=== PATIENT | male | born 1970 | race Caucasian/White ===

== ENCOUNTER → 2019-07-24 | Outpatient (CLI) | payer OTHER ==
--- NOTE | 2019-07-25 14:43 | REP ---
BILATERAL KNEE MRI STUDY WITHOUT CONTRAST: HISTORY: Bilateral knee pain and locking. TECHNIQUE: Axial, coronal, and sagittal imaging planes are utilized for T1, proton density, and T2-weighted scans obtain in the usual fashion with and without fat saturation. LEFT KNEE MRI FINDINGS: Cortical and medullary bone signal intensity are normal. There is a small amount of joint fluid. A Gross cyst is seen in the posteromedial popliteal soft tissues. There is mild soft tissue swelling in the prepatellar soft tissues anterior to the patellar tendon. The patellar tendon itself shows normal signal intensity, course, and caliber. Quadriceps tendon is unremarkable. Anterior and posterior cruciate ligaments have an intact appearance. There is no evidence of medial or lateral collateral ligament disruption. No medial or lateral meniscal tear is appreciated. There is mild chondromalacia change in the medial femoral condyle articular cartilage. There is no other articular cartilage defect seen. Study is otherwise unremarkable. IMPRESSION: Gross cyst. Mild chondromalacia in the medial femoral condyle. There is prepatellar tendon soft tissue edema. Otherwise no internal derangement seen. Left knee. RIGHT KNEE MRI FINDINGS: No significant joint effusion is seen. No discernible Gross cyst. There is a zone of marrow edema and subcortical cyst formation in the anterior and medial aspect of the tibial plateau. Cortical and medullary bone signal intensity are otherwise normal. There is edema in the prepatellar soft tissues anterior to the patellar tendon similar to that seen on the left. Patellar and quadriceps tendons appear intact. There is no evidence of anterior or posterior cruciate ligament disruption. Medial ligamentous complexes are intact. There is mild chondromalacia in the articular cartilage of the medial and lateral femoral condyles and the lateral tibial plateau. No full thickness articular cartilage lesion is seen. Patellar articular appears intact. There is no evidence of medial or lateral meniscal tear. IMPRESSION: Mild tibiofemoral chondromalacia changes. Subcortical cyst formation in the anteromedial tibial plateau. Prepatellar tendon edema. No other internal derangement seen. Electronically Signed by Ralph Mercado MD 07/25/2019 07:05 P
== END ==
LOC: M RAD 17:21
PROVIDERS: ATTEND Physician Assistant Medical
DX: M25.561 Pain in right knee (principal); M25.562 Pain in left knee; M79.604 Pain in right leg; M79.605 Pain in left leg

== ENCOUNTER 2021-03-10 23:13 | Emergency (ER) | payer MEDICARE ==
[~2021-03-10] VITALS: Ht 162.6 cm; Wt 77.3 kg
[2021-03-10] MEDS ORDERED: ALBU8.5H INH (23:45)
[2021-03-10] MEDS ORDERED: PRED20TA PO (23:45)
[2021-03-10] MEDS ORDERED: AZIT-12 PO (23:45)
[2021-03-11] MEDS ORDERED: LIDOCAINE W/EPINEPHRINE 1% 20ML VIAL SC ONE (00:40)
[2021-03-11] MEDS ORDERED: DERMABOND TOPICAL SKIN ADHESIVE TOP ONE (00:40)
[2021-03-11 01:15] VITALS: BP 118/80
== END 2021-03-11 01:36 | disposition left against medical advice (07) ==
LOC: M ED 23:13
DX: R55 Syncope and collapse (principal); S01.81XA Laceration without foreign body of other part of head, initial encounter; S01.21XA Laceration without foreign body of nose, initial encounter; W19.XXXA Unspecified fall, initial encounter; Y92.59 Other trade areas as the place of occurrence of the external cause; Y93.9 Activity, unspecified; Y99.9 Unspecified external cause status; Z53.9 Procedure and treatment not carried out, unspecified reason

== ENCOUNTER 2021-03-13 11:20 | Emergency (ER) | payer MEDICARE, OTHER ==
[~2021-03-13] VITALS: Ht 162.6 cm; Wt 75.6 kg
[~2021-03-13 11:20] MED LIST: ALBU8.5H INH; AZIT-12 PO; PRED20TA PO
--- NOTE | 2021-03-13 15:44 | REP ---
INDICATION: fall tingling in hands /3 days ago. COMPARISON: None. TECHNIQUE: Helical scanning is acquired. 5 mm axial images were reformatted. Coronal MPR images were generated. FINDINGS: Bone window settings demonstrate an intact bony calvarium. There is no evidence of skull fracture or incidental bony calvarial lesion. The visualized paranasal sinuses appear clear. No intraorbital abnormality is seen. On soft tissue window setting images; the lateral, third, and fourth ventricles are normal in size and position. Rutherford-white differentiation pattern is normal above and below the tentorium. There are is no evidence of intracranial hemorrhage. No mass, edema, infarction, or midline shift is seen. No extra-axial fluid collection is appreciated. IMPRESSION: Negative noncontrast head CT. <Electronically signed by Goldy Mercado > 03/13/21 [id number]
--- NOTE | 2021-03-13 15:46 | REP ---
INDICATION: fall. COMPARISON: None. TECHNIQUE: Helical scanning is acquired and overlapping 2 mm high resolution axial images were generated and reviewed at bone and soft tissue window settings. Coronal and sagittal multiplanar re-formations images are generated. FINDINGS: There is no evidence of cervical spine element fracture. No skull base fracture is seen. Cervical vertebral body heights are preserved. Alignment is normal. Facet joints are normally aligned bilaterally at each cervical level on multiplanar re-formations images. There is no evidence of intraspinal or paraspinal hematoma. No extra vertebral abnormality is seen. There is straightening of the normal cervical lordosis. Degenerative disc narrowing and posterior osteophytic ridging is noted at C4-5. There is bilateral C4-5 uncovertebral spurring mild in degree. There is mild right-sided uncovertebral spurring at C3-4. IMPRESSION: Degenerative disc disease at C4-5 and C3-4. Straightening. Otherwise negative cervical spine CT study. No traumatic abnormality seen. <Electronically signed by Goldy Mercado > 03/13/21 [id number]
--- NOTE | 2021-03-13 15:56 | REPVR ---
PROCEDURE INFORMATION: Exam: CT Maxillofacial Without Contrast Exam date and time: 03/13/2021 3:31 PM Age: 50 years old Clinical indication: Injury or trauma; Fall; Blunt trauma (contusions or hematomas); Other: Not specified; Additional info: Fall tingling in hands /3 days ago TECHNIQUE: Imaging protocol: Computed tomography images of the face without contrast. Radiation optimization: All CT scans at this facility use at least one of these dose optimization techniques: automated exposure control; mA and/or kV adjustment per patient size (includes targeted exams where dose is matched to clinical indication); or iterative reconstruction. COMPARISON: No relevant prior studies available. FINDINGS: Orbital cavity: The orbits are intact. Bones/joints: Irregular contour the nasal bones left greater than right suggest fractures. The nasal septum is minimally deviated to the left. Paranasal sinuses: No air-fluid levels in the paranasal sinuses. Minimal frontal sinus disease in the midline. Mastoid air cells: The mastoids are well aerated including the petrous apices. Soft tissues: Mild soft tissue swelling and a tiny amount of soft tissue air adjacent to the fractures in the nasal bones. Other findings: The ostomy units are patent. IMPRESSION: Nasal bone fractures. Electronically signed by: Markie Prajapati On 03/13/2021 15:56:58 PM
[2021-03-13 16:27] VITALS: BP 112/77
== END 2021-03-13 16:29 | disposition home or self-care (01) ==
LOC: M ED 11:20
DX: S02.2XXA Fracture of nasal bones, initial encounter for closed fracture (principal); S01.419A Laceration without foreign body of unspecified cheek and temporomandibular area, initial encounter; W19.XXXA Unspecified fall, initial encounter; R55 Syncope and collapse; Y92.9 Unspecified place or not applicable; Y93.9 Activity, unspecified; Y99.9 Unspecified external cause status

== ENCOUNTER → 2021-06-06 | Outpatient (CLI) | payer OTHER | LOC: M LABSMTC 10:25 | PROVIDERS: ATTEND Anesthesiology | DX: Z01.812 Encounter for preprocedural laboratory examination (principal); Z20.822 Contact with and (suspected) exposure to COVID-19 ==

== ENCOUNTER → 2021-06-29 | Outpatient (CLI) | payer OTHER | LOC: M LABSMTC 11:43 | PROVIDERS: ATTEND Anesthesiology | DX: Z01.812 Encounter for preprocedural laboratory examination (principal); Z11.52 Encounter for screening for COVID-19 ==

== ENCOUNTER 2021-07-02 06:39 | Day surgery (SDC) | payer OTHER ==
[~2021-07-02] VITALS: Ht 162.6 cm; Wt 83.0 kg
[~2021-07-02 06:39] MED LIST changes: +LR 1,000 ML IV ONE
[2021-07-02] MEDS ORDERED: dexameTHASONE 4 MG/ML 1ML VIAL (J1100 PER 1MG) As Ordered ONE (07:52)
[2021-07-02] MEDS ORDERED: ROCURONIUM BROMIDE 50 MG/5 ML VIAL As Ordered ONE (07:52)
[2021-07-02] MEDS ORDERED: fentaNYL 100 MCG/2 ML INJECTION (J3010) As Ordered ONE (07:52)
[2021-07-02] MEDS ORDERED: propofoL 200 MG/20 ML VIAL As Ordered ONE (07:52)
[2021-07-02] MEDS ORDERED: MIDAZOLAM INJ 2MG/2ML VIAL (J2250 PER 1MG) As Ordered ONE (07:52)
[2021-07-02] MEDS ORDERED: ONDANSETRON 4MG/2ML VIAL As Ordered ONE (07:52)
[2021-07-02] MEDS ORDERED: LIDOCAINE 2% 100MG/5ML SDV (FOR ANES.) As Ordered ONE (07:52)
[2021-07-02] MEDS ORDERED: METHYLENE BLUE 0.5% (5MG/ML) 10 ML AMP (PROVAYBLUE) As Ordered ONE (08:46)
[2021-07-02] MEDS ORDERED: LIDOCAINE W/EPINEPHRINE 1% 20ML VIAL As Ordered ONE (08:47)
[2021-07-02] MEDS ORDERED: EPINEPHrine 1MG/ML INJ 30ML MD-VIAL As Ordered ONE (08:47)
[2021-07-02] MEDS ORDERED: LACRILUBE (AKWA TEARS) OPHTH OINT 3.5 GM As Ordered ONE (09:11)
[2021-07-02] MEDS ORDERED: ACETAMINOPHEN 1000MG 100ML IV BTL (OFIRMEV) (J0131 PER 10MG) As Ordered ONE (09:11)
[2021-07-02] MEDS ORDERED: DESFLURANE 240 ML INHALANT As Ordered ONE (09:33)
[2021-07-02] MEDS ORDERED: ePHEDrine SULFATE 25 MG/5 ML(5MG/ML) SYRINGE As Ordered ONE (09:37)
[2021-07-02] MEDS ORDERED: SUGAMMADEX SODIUM 500 MG/5 ML VIAL (BRIDION) As Ordered ONE (09:39)
[2021-07-02] MEDS ORDERED: LR 1,000 ML IV SCH ×2 (10:25→10:30)
[2021-07-02] MEDS ORDERED: oxyCODONE 5MG TAB PO PRN (10:25)
[2021-07-02] MEDS ORDERED: fentaNYL 100 MCG/2 ML INJECTION (J3010) IV PRN (10:25)
[2021-07-02] MEDS ORDERED: ONDANSETRON 4MG/2ML VIAL IV PRN (10:25)
--- NOTE | 2021-07-02 11:16 | RO ---
OPERATIVE NOTE DATE OF OPERATION: 07/02/2021 PREOPERATIVE DIAGNOSIS: Nasal septal deviation, deviated nose. POSTOPERATIVE DIAGNOSIS: Nasal septal deviation, deviated nose. PROCEDURE: Septoplasty, nasal infracture. SURGEON: JOSE MENCHACA MD DESCRIPTION OF PROCEDURE: Under general anesthesia with the patient intubated, the patient was prepped and draped in the usual manner. I used pledgets of adrenaline 1:100,000 and infiltrated with lidocaine and epinephrine. I started by making an incision anteriorly on the left side. I elevated the sub-perichondrial plane. I sectioned the cartilage and the cartilage from the maxillary crest and ethmoid plate, removed portions of that cartilage and after that the septum was straight so I closed that incision with interrupted 4-0 Monocryl. I then made an incision anterior to the inferior aspect of the nasal bone on both sides and elevated the periosteum off of where I was going to do an infracture, I did that both medially and laterally on both sides. I then used a curved guarded osteotome and did a lateral __ on both sides. I then did medial osteotomies and repositioned the nose in the midline. A cast was applied. The patient was extubated and transferred to the Recovery Room in excellent condition. Less than 10 mL of blood loss.
[2021-07-02 11:45] VITALS: BP 142/97
== END 2021-07-02 12:00 | disposition home or self-care (01) ==
LOC: M SDC 06:39
PROVIDERS: ATTEND Otolaryngology
DX: J34.2 Deviated nasal septum (principal); Z91.013 Allergy to seafood
CPT/HCPCS: 30520; 30930; 88300; J0131; J1100; J2250; J2405; J3010; Q9968; U0002